=== PATIENT | male | born 1950 | race Caucasian/White ===

== ENCOUNTER 2016-12-28 16:46 | Emergency (ER) | payer MEDICARE, OTHER ==
[~2016-12-28] VITALS: Ht 182.9 cm; Wt 90.9 kg
[~2016-12-28 16:46] MED LIST: ATOR10TA84 PO; CLON2TAB4 PO; COLC0.6T69 PO; FURO40 PO; LISI-660 PO; METH10 PO; METO25 PO; METO50 PO; OMEP20 PO; OXYC30TA2 PO
[2016-12-28 17:36] LABS: GLUCOSE,POINT OF CARE 107 MG/DL (70-110)
[2016-12-28] MEDS ORDERED: AMLO-512 PO (17:44)
[2016-12-28] MEDS ORDERED: MORP10CA8 PO (17:44)
[2016-12-28] MEDS ORDERED: LACT30L PO (17:44)
[2016-12-28] MEDS ORDERED: CHOL200018 PO (17:44)
[2016-12-28] MEDS ORDERED: FINA5TAB41 PO (17:44)
[2016-12-28] MEDS ORDERED: DOCU250C91 PO (17:44)
[2016-12-28] MEDS ORDERED: ALLO100T PO (17:44)
[2016-12-28] MEDS ORDERED: NICO14T TD (17:44)
[2016-12-28] MEDS ORDERED: DESV50TA PO (17:44)
[2016-12-28] MEDS ORDERED: MULT-1203 PO (17:44)
[2016-12-28] MEDS ORDERED: FLUT15.88 IH (17:44)
[2016-12-28] MEDS ORDERED: TAMS0.4C32 PO (17:44)
[2016-12-28] MEDS ORDERED: BUSP10TA23 PO (17:44)
[2016-12-28] MEDS ORDERED: MORPHINE SULFATE 4 MG/ML SYRINGE IM ONE (19:00)
[2016-12-28 19:52] VITALS: BP 151/79
== END 2016-12-28 19:57 | disposition home or self-care (01) ==
LOC: EMS 16:48
DX: S70.02XA Contusion of left hip, initial encounter (principal); E11.9 Type 2 diabetes mellitus without complications; I10 Essential (primary) hypertension; W01.0XXA Fall on same level from slipping, tripping and stumbling without subsequent striking against object, initial encounter; Y93.89 Activity, other specified; Y92.89 Other specified places as the place of occurrence of the external cause; Y99.8 Other external cause status
CPT/HCPCS: 73521; 82962; 96372; 99284; J2270

== ENCOUNTER 2018-05-22 01:34 | Emergency (ER) | payer MEDICARE, OTHER ==
[~2018-05-22] VITALS: Ht 182.9 cm; Wt 96.4 kg
[~2018-05-22 01:34] MED LIST changes: +ALLO100T PO; +AMLO-512 PO; +BUSP10TA23 PO; +CHOL200018 PO; +CLON2TAB11 PO; -CLON2TAB4 PO; +COLC0.6T67 PO; -COLC0.6T69 PO; +DESV50TA PO; +DOCU250C91 PO; +FINA5TAB41 PO; +FLUT15.88 IH; -FURO40 PO; +LACT30L PO; -METO25 PO; -METO50 PO; +MORP10CA8 PO; +MULT-1203 PO; +NICO14T TD; -OXYC30TA2 PO; +TAMS0.4C32 PO
[2018-05-22] MEDS ORDERED: MORP15T PO (01:54)
[2018-05-22] MEDS ORDERED: CLON1 PO (01:54)
[2018-05-22 02:03] LABS: GLUCOSE,POINT OF CARE 110 MG/DL (70-110)
[2018-05-22 02:23] LABS: AMPHET/METH SCREEN,URINE NEGATIVE (NEGATIVE); BARBITURATE SCREEN, URINE NEGATIVE (NEGATIVE); BENZODIAZEPINES SCREEN,URINE NEGATIVE (NEGATIVE); CANNABINOID SCREEN,URINE NEGATIVE (NEGATIVE); COCAINE SCREEN,URINE NEGATIVE (NEGATIVE); METHADONE SCREEN, URINE POSITIVE (NEGATIVE); OPIATE SCREEN,URINE POSITIVE (NEGATIVE)
[2018-05-22 02:25] LABS: PHENCYCLIDINE SCREEN,URINE NEGATIVE (NEGATIVE)
[2018-05-22 02:56] VITALS: BP 99/53
== END 2018-05-22 04:02 | disposition home or self-care (01) ==
LOC: EMS 01:35
DX: F10.10 Alcohol abuse, uncomplicated (principal); M25.552 Pain in left hip; E11.9 Type 2 diabetes mellitus without complications; I10 Essential (primary) hypertension; G89.29 Other chronic pain; F11.90 Opioid use, unspecified, uncomplicated; Z88.0 Allergy status to penicillin; Y90.6 Blood alcohol level of 120-199 mg/100 ml
CPT/HCPCS: 36415; 80307; 82962; 99284; G0480

== ENCOUNTER 2019-06-24 11:34 | Emergency (ER) | payer MEDICARE, OTHER ==
[~2019-06-24] VITALS: Ht 185.4 cm; Wt 76.4 kg
[~2019-06-24 11:34] MED LIST changes: -AMLO-512 PO; +AMLO10TA7 PO; +CLON1 PO; -CLON2TAB11 PO; -COLC0.6T67 PO; +COLC0.6T76 PO; -MORP10CA8 PO; +MORP15T PO; -NICO14T TD
[2019-06-24 11:50] VITALS: BP 109/62
[2019-06-24 12:01] LABS: GLUCOSE,POINT OF CARE 122 MG/DL (70-110)
[2019-06-24] MEDS ORDERED: METO25 PO (12:02)
[2019-06-24] MEDS ORDERED: ICOS1CAP PO (12:02)
[2019-06-24] MEDS ORDERED: FURO20 PO (12:02)
[2019-06-24] MEDS ORDERED: GABA-531 PO (12:02)
[2019-06-24] MEDS ORDERED: OXYC10IR PO (12:03)
[2019-06-24] MEDS ORDERED: MORPHINE SULFATE 10 MG/ML SYRINGE IM ONE (12:30)
== END 2019-06-24 13:43 | disposition home or self-care (01) ==
LOC: EMS 11:36
DX: G89.29 Other chronic pain (principal); E11.9 Type 2 diabetes mellitus without complications; I10 Essential (primary) hypertension; I48.91 Unspecified atrial fibrillation; F31.9 Bipolar disorder, unspecified; F11.90 Opioid use, unspecified, uncomplicated; Z98.890 Other specified postprocedural states; Z79.899 Other long term (current) drug therapy; Z90.49 Acquired absence of other specified parts of digestive tract; Z96.659 Presence of unspecified artificial knee joint; Z96.649 Presence of unspecified artificial hip joint; Z88.0 Allergy status to penicillin
CPT/HCPCS: 82962; 96372; 99283; J2270

== ENCOUNTER 2019-08-15 08:25 | Emergency (ER) | payer MEDICARE, OTHER ==
[~2019-08-15] VITALS: Ht 182.9 cm; Wt 83.6 kg
[~2019-08-15 08:25] MED LIST changes: -CLON1 PO; +CLON1TAB13 PO; +FURO20 PO; +GABA-531 PO; +ICOS1CAP PO; -LACT30L PO; +METO25 PO; +OXYC10IR PO
[2019-08-15] MEDS ORDERED: ALPR0.5T8 PO (08:36)
[2019-08-15] MEDS ORDERED: CLON1TAB13 PO (08:36)
[2019-08-15] MEDS ORDERED: ICOS0.5C PO (08:36)
[2019-08-15] MEDS ORDERED: ZOLP10TA7 PO (08:36)
[2019-08-15] MEDS ORDERED: LISI-661 PO (08:36)
[2019-08-15] MEDS ORDERED: HYDR-4455 PO (08:36)
[2019-08-15 09:10] LABS: BASOPHILS % (AUTO) 0.2 % (0.0-2.0); EOSINOPHILS % (AUTO) 0.4 % (1.0-6.0); HEMATOCRIT 38.6 % (41-53); LYMPHOCYTES # (AUTO) 0.5 K/uL (1.0-4.8); LYMPHOCYTES % (AUTO) 8.2 % (22.0-44.0); MEAN CORPUSCULAR HGB CONC 33.6 G/dL (31.0-37.0); MEAN CORPUSCULAR VOLUME 93 fL (80-100); MONOCYTES # (AUTO) 0.4 K/uL (0.1-1.0); MONOCYTES % (AUTO) 6.4 % (2.0-9.0); NEUTROPHILS # (AUTO) 5.6 K/uL (1.8-7.7); NEUTROPHILS % (AUTO) 84.8 % (40.0-70.0); PLATELET COUNT (AUTO) 125 K/uL (150-450); RED BLOOD CELL COUNT(AUTO) 4.18 MIL/uL (4.50-5.90)
[2019-08-15 09:14] LABS: SALICYLATE 3.9 mg/dL (2.8-20.0)
[2019-08-15 09:15] LABS: ANION GAP 5 mmol/L (8-16); CALCIUM, TOTAL 8.9 mg/dL (8.8-10.5); CARBON DIOXIDE 28 mmol/L (22-29); CHLORIDE 99 mmol/L (98-107); CREATININE 1.69 mg/dL (0.60-1.30); GLOMERULAR FILTR. RATE CALC 40 mL/min (>60); GLUCOSE,RANDOM 210 mg/dL (70-110); POTASSIUM 5.3 mmol/L (3.5-5.1); SODIUM SERUM 132 mmol/L (136-145); UREA NITROGEN, BLOOD 22 mg/dL (7-18)
[2019-08-15 09:23] LABS: ALANINE AMINOTRANSFERASE 32 U/L (12-78); ALBUMIN 3.1 g/dL (3.4-5.0); ALKALINE PHOSPHATASE 146 U/L (46-116); ASPARTATE AMINOTRANSFERASE 31 U/L (15-37); BILIRUBIN,TOTAL 0.3 mg/dL (0.1-1.0); TOTAL PROTEIN, SERUM 6.7 g/dL (6.4-8.2)
[2019-08-15 09:24] LABS: ACETAMINOPHEN < 2 mcg/mL (10-30)
[2019-08-15 11:05] VITALS: BP 97/60
== END 2019-08-15 11:11 | disposition home or self-care (01) ==
LOC: EMS 08:25
DX: T40.2X1A Poisoning by other opioids, accidental (unintentional), initial encounter (principal); T42.4X1A Poisoning by benzodiazepines, accidental (unintentional), initial encounter; I48.91 Unspecified atrial fibrillation; E11.9 Type 2 diabetes mellitus without complications; I10 Essential (primary) hypertension; G89.29 Other chronic pain; F13.10 Sedative, hypnotic or anxiolytic abuse, uncomplicated; Z90.89 Acquired absence of other organs; Z79.899 Other long term (current) drug therapy; Z88.0 Allergy status to penicillin; Y92.89 Other specified places as the place of occurrence of the external cause
CPT/HCPCS: 36415; 80053; 82962; 85025; 99285; G0480; G0481

== ENCOUNTER 2019-08-28 13:35 | Emergency (ER) | payer MEDICARE, OTHER ==
[~2019-08-28] VITALS: Ht 182.9 cm; Wt 80.9 kg
[~2019-08-28 13:35] MED LIST changes: +ALPR0.5T8 PO; +COLC0.6T73 PO; -COLC0.6T76 PO; +HYDR-4455 PO; +ICOS0.5C PO; -LISI-660 PO; +LISI-661 PO; +TAMS-13 PO; -TAMS0.4C32 PO; +ZOLP10TA7 PO
[2019-08-28 15:26] VITALS: BP 105/61
== END 2019-08-28 15:55 | disposition home or self-care (01) ==
LOC: EMS 13:38
DX: I95.9 Hypotension, unspecified (principal); I48.91 Unspecified atrial fibrillation; E11.9 Type 2 diabetes mellitus without complications; G89.29 Other chronic pain; I10 Essential (primary) hypertension; F11.90 Opioid use, unspecified, uncomplicated; F31.9 Bipolar disorder, unspecified; Z90.49 Acquired absence of other specified parts of digestive tract; Z88.0 Allergy status to penicillin; Z79.899 Other long term (current) drug therapy; Z98.890 Other specified postprocedural states

== ENCOUNTER 2019-09-09 13:29 | Emergency (ER) | payer MEDICARE, OTHER ==
[~2019-09-09] VITALS: Ht 177.8 cm; Wt 84.0 kg
[~2019-09-09 13:29] MED LIST changes: -ATOR10TA84 PO; +DOCU-342 PO; -DOCU250C91 PO; -ICOS1CAP PO
[2019-09-09 14:59] LABS: BASOPHILS % (AUTO) 0.3 % (0.0-2.0); EOSINOPHILS % (AUTO) 1.3 % (1.0-6.0); HEMATOCRIT 37.5 % (41-53); HEMOGLOBIN 12.5 g/dL (13.5-17.5); LYMPHOCYTES # (AUTO) 1.2 K/uL (1.0-4.8); LYMPHOCYTES % (AUTO) 21.8 % (22.0-44.0); MEAN CORPUSCULAR HEMOGLOBIN 30.4 pg (26.0-34.0); MEAN CORPUSCULAR HGB CONC 33.4 G/dL (31.0-37.0); MEAN CORPUSCULAR VOLUME 91 fL (80-100); MONOCYTES # (AUTO) 0.4 K/uL (0.1-1.0); MONOCYTES % (AUTO) 7.3 % (2.0-9.0); NEUTROPHILS % (AUTO) 69.3 % (40.0-70.0); PLATELET COUNT (AUTO) 171 K/uL (150-450); RED BLOOD CELL COUNT(AUTO) 4.11 MIL/uL (4.50-5.90); RED CELL DISTRIBUTION WIDTH 14.3 % (11.5-14.5)
[2019-09-09] MEDS ORDERED: NALOXONE HCL 1 MG/ML 2 ML SYG IVP ONE (15:00)
[2019-09-09 15:01] LABS: GLUCOSE,POINT OF CARE 87 MG/DL (70-110)
[2019-09-09 15:15] LABS: ANION GAP 6 mmol/L (8-16); CALCIUM, TOTAL 9.3 mg/dL (8.8-10.5); CARBON DIOXIDE 30 mmol/L (22-29); CHLORIDE 99 mmol/L (98-107); CREATININE 1.34 mg/dL (0.60-1.30); GLOMERULAR FILTR. RATE CALC 53 mL/min (>60); GLUCOSE,RANDOM 84 mg/dL (70-110); POTASSIUM 4.8 mmol/L (3.5-5.1); SODIUM SERUM 135 mmol/L (136-145); UREA NITROGEN, BLOOD 21 mg/dL (7-18)
[2019-09-09 15:33] LABS: SALICYLATE 2.9 mg/dL (2.8-20.0)
[2019-09-09 15:40] LABS: ALANINE AMINOTRANSFERASE 14 U/L (12-78); ALBUMIN 3.3 g/dL (3.4-5.0); ALKALINE PHOSPHATASE 116 U/L (46-116); ASPARTATE AMINOTRANSFERASE 23 U/L (15-37); BILIRUBIN,TOTAL 0.6 mg/dL (0.1-1.0); CREATINE KINASE, TOTAL ONLY 360 U/L (39-308); TOTAL PROTEIN, SERUM 7.2 g/dL (6.4-8.2)
[2019-09-09 15:41] LABS: ACETAMINOPHEN < 2 mcg/mL (10-30)
[2019-09-09] MEDS ORDERED: MAGNESIUM SULFATE 2 GM/WATER 50 ML IV ONE (16:00)
[2019-09-09 18:28] LABS: APPEARANCE,URINE CLEAR (CLEAR); BILIRUBIN,URINE NEGATIVE (NEGATIVE); GLUCOSE, URINE (UA) NEGATIVE (NEGATIVE); KETONES,URINE NEGATIVE (NEGATIVE); LEUKOCYTE ESTERASE ,URINE NEGATIVE (NEGATIVE); NITRATE,URINE NEGATIVE (NEGATIVE); OCCULT BLOOD,URINE NEGATIVE (NEGATIVE); PH,URINE 5.5 (5.0-8.0); PROTEIN,URINE NEGATIVE (NEGATIVE); UROBILINOGEN,URINE 0.2 mg/dL (<=1.0)
[2019-09-09 18:33] LABS: AMPHET/METH SCREEN,URINE NEGATIVE (NEGATIVE); BARBITURATE SCREEN, URINE NEGATIVE (NEGATIVE); BENZODIAZEPINES SCREEN,URINE POSITIVE (NEGATIVE); CANNABINOID SCREEN,URINE NEGATIVE (NEGATIVE); COCAINE SCREEN,URINE NEGATIVE (NEGATIVE); METHADONE SCREEN, URINE POSITIVE (NEGATIVE); OPIATE SCREEN,URINE POSITIVE (NEGATIVE)
[2019-09-09 18:38] LABS: PHENCYCLIDINE SCREEN,URINE NEGATIVE (NEGATIVE)
[2019-09-09 19:43] VITALS: BP 112/79
== END 2019-09-09 20:05 | disposition home or self-care (01) ==
LOC: EMS 13:30
DX: E83.42 Hypomagnesemia (principal); F11.121 Opioid abuse with intoxication delirium; T40.2X5A Adverse effect of other opioids, initial encounter; I10 Essential (primary) hypertension; E11.9 Type 2 diabetes mellitus without complications; F31.9 Bipolar disorder, unspecified; I48.91 Unspecified atrial fibrillation; Z88.0 Allergy status to penicillin; Z79.899 Other long term (current) drug therapy; W18.39XA Other fall on same level, initial encounter; Y93.89 Activity, other specified; Y92.89 Other specified places as the place of occurrence of the external cause; Y99.8 Other external cause status
CPT/HCPCS: 36415; 70450; 72125; 80053; 80307; 81003; 82550; 82962; 83735; 85025; 96365; 96366; 99284; G0480; J3475; G0481

== ENCOUNTER 2020-04-13 15:02 | Emergency (ER) | payer MEDICARE, OTHER ==
[~2020-04-13] VITALS: Ht 185.4 cm; Wt 85.5 kg
[~2020-04-13 15:02] MED LIST changes: +FINA-27 PO; -FINA5TAB41 PO; +GABA-1181 PO; -GABA-531 PO; -OXYC10IR PO; +OXYC10TA92 PO; -ZOLP10TA7 PO; +ZOLP10TA8 PO
[2020-04-13 15:54] VITALS: BP 141/76
== END 2020-04-13 16:28 | disposition home or self-care (01) ==
LOC: EMS 15:04
DX: I10 Essential (primary) hypertension (principal); I48.91 Unspecified atrial fibrillation; F31.9 Bipolar disorder, unspecified; E11.9 Type 2 diabetes mellitus without complications; G89.29 Other chronic pain; Z90.89 Acquired absence of other organs; Z79.899 Other long term (current) drug therapy; Z88.0 Allergy status to penicillin

== ENCOUNTER 2021-10-01 21:42 | Inpatient (IN) | payer MEDICARE, OTHER ==
[~2021-10-01] VITALS: Ht 175.3 cm; Wt 87.6 kg
[~2021-10-01 21:42] MED LIST changes: -ALLO100T PO; +ALLO100T2 PO; +AMLO-258 PO; -AMLO10TA7 PO; +CLON-595 PO; -CLON1TAB13 PO; -DOCU-342 PO; +DOCU-350 PO; -LISI-661 PO; +LISI-893 PO
[2021-10-01] MEDS ORDERED: SODIUM CHLORIDE 0.9% 2,000 ML IV ONE (22:00)
[2021-10-01 22:10] LABS: ABG BASE EXCESS -16.4 mmol/L (-2.0-3.0); ABG CARBOXYHEMOGLOBIN 0.1 % (0.0-1.5); ABG HCO3 12.5 mmol/L (22.0-26.0); ABG METHEMOGLOBIN 0.2 % (0.0-1.5); ABG OXYGEN CONTENT 16.2 mL/dL (15.0-23.0); ABG OXYHEMOGLOBIN 93.7 % (94.0-100.0); ABG PCO2 42 mmHg (35-45); ABG TOTAL HEMOGLOBIN 12.2 G/dL (12.0-18.0); PO2, ARTERIAL BG 85.1 mmHg (75.0-83.0); SOURCE, BLOOD GAS ARTERIAL; TEMPERATURE, FAHRENHEIT, BG 98.6 FAHREN (96.0-98.6)
[2021-10-01 22:11] LABS: ABG PH 7.114 (7.35-7.450); O2 DEVICE,BLOOD GAS NON REBREATHER (ROOM AIR); SITE, BLOOD GAS RT RADIAL
[2021-10-01] MEDS ORDERED: ATOR20TA86 PO (22:11)
[2021-10-01] MEDS: OXYGEN THERAPY IH SCH (22:12)
[2021-10-01] MEDS ORDERED: BISA10SU11 PR (22:13)
[2021-10-01] MEDS ORDERED: BISA-151 PO (22:13)
[2021-10-01 22:24] LABS: COVID AG,FIA SOURCE NASOPHARYNGEAL
[2021-10-01 22:24] LABS: BASOPHILS % (AUTO) 0.2 % (0.0-2.0); EOSINOPHILS % (AUTO) 0 % (1.0-6.0); HEMATOCRIT 37.4 % (41-53); HEMOGLOBIN 12.3 g/dL (13.5-17.5); LYMPHOCYTES # (AUTO) 0.3 K/uL (1.0-4.8); LYMPHOCYTES % (AUTO) 3.4 % (22.0-44.0); MEAN CORPUSCULAR HEMOGLOBIN 31.5 pg (26.0-34.0); MEAN CORPUSCULAR HGB CONC 32.8 G/dL (31.0-37.0); MEAN CORPUSCULAR VOLUME 96 fL (80-100); MONOCYTES # (AUTO) 0.3 K/uL (0.1-1.0); MONOCYTES % (AUTO) 3.2 % (2.0-9.0); NEUTROPHILS # (AUTO) 8.6 K/uL (1.8-7.7); PLATELET COUNT (AUTO) 315 K/uL (150-450); RED CELL DISTRIBUTION WIDTH 15.3 % (11.5-14.5)
[2021-10-01 22:27] LABS: NEUTROPHILS % (AUTO) 93.2 % (40.0-70.0)
[2021-10-01] MEDS ORDERED: MethylPREDNISolone SOD SUCC 125 MG/2 ML VIAL IVP ONE (22:30)
[2021-10-01] MEDS ORDERED: LEVOFLOXACIN 750 MG/D5% WATER 150 ML IV ONE (22:30)
[2021-10-01] MEDS ORDERED: VANCOMYCIN HCL 1.5 GM in DEXTROSE 5%-WATER 250 ML IV ONE (22:30)
[2021-10-01] MEDS ORDERED: NOREPINEPHRINE 4 MG/D5%-WATER 250 ML IV STA (22:33)
[2021-10-01] MEDS ORDERED: NOREPINEPHRINE 4 MG/D5%-WATER 250 ML IV ONE (22:33)
[2021-10-01 22:36] LABS: ANION GAP 17 mmol/L (8-16); CARBON DIOXIDE 15 mmol/L (22-29); CHLORIDE 106 mmol/L (98-107); CREATININE 6.97 mg/dL (0.60-1.30); GLOMERULAR FILTR. RATE CALC 8 mL/min (>60); GLUCOSE,RANDOM 197 mg/dL (70-110); POTASSIUM 4.8 mmol/L (3.5-5.1); SODIUM SERUM 138 mmol/L (136-145)
[2021-10-01 22:41] LABS: UREA NITROGEN, BLOOD 159 mg/dL (7-18)
[2021-10-01 22:47] LABS: ALANINE AMINOTRANSFERASE 15 U/L (12-78); ALBUMIN 2.2 g/dL (3.4-5.0); ALKALINE PHOSPHATASE 114 U/L (46-116); ASPARTATE AMINOTRANSFERASE 10 U/L (15-37); BILIRUBIN,TOTAL 0.2 mg/dL (0.1-1.0); LIPASE 41 U/L (73-393); TOTAL PROTEIN, SERUM 7.4 g/dL (6.4-8.2)
[2021-10-01 22:51] LABS: LACTIC ACID 1.7 mmol/L (0.4-2.0)
[2021-10-01 22:59] LABS: B-TYPE NATRIURETIC PEPTIDE 185 pg/mL (0-100)
[2021-10-01] MEDS ORDERED: SODIUM CHLORIDE 0.9% 1,000 ML IV ONE (23:00)
[2021-10-01 23:22] LABS: APPEARANCE,URINE CLEAR (CLEAR); GLUCOSE, URINE (UA) NEGATIVE (NEGATIVE); KETONES,URINE NEGATIVE (NEGATIVE); LEUKOCYTE ESTERASE ,URINE MODERATE (NEGATIVE); NITRATE,URINE NEGATIVE (NEGATIVE); OCCULT BLOOD,URINE NEGATIVE (NEGATIVE); PROTEIN,URINE POS 1+ (NEGATIVE); UROBILINOGEN,URINE 0.2 mg/dL (<=1.0)
[2021-10-01 23:25] LABS: BILIRUBIN,URINE PRELIM. POSITIVE (NEGATIVE)
[2021-10-01 23:28] LABS: AMPHET/METH SCREEN,URINE NEGATIVE (NEGATIVE); BARBITURATE SCREEN, URINE NEGATIVE (NEGATIVE); BENZODIAZEPINES SCREEN,URINE POSITIVE (NEGATIVE); CANNABINOID SCREEN,URINE NEGATIVE (NEGATIVE); COCAINE SCREEN,URINE NEGATIVE (NEGATIVE); METHADONE SCREEN, URINE POSITIVE (NEGATIVE); OPIATE SCREEN,URINE POSITIVE (NEGATIVE)
[2021-10-01 23:29] LABS: PHENCYCLIDINE SCREEN,URINE NEGATIVE (NEGATIVE)
[2021-10-01 23:36] LABS: BACTERIA,URINE Moderate /HPF (None Seen); RBC,URINE 0-2 /HPF (0-2)
[2021-10-02] MEDS ORDERED: SODIUM CHLORIDE 0.9% 1,000 ML IV ONE (00:15)
[2021-10-02] MEDS ORDERED: MAGNESIUM HYDROXIDE SUSPENSION 30 ML UDCUP PO PRN (00:45)
[2021-10-02] MEDS ORDERED: BISACODYL 10 MG RECTAL RECTAL SUPPOSITORY PR PRN (00:45)
[2021-10-02] MEDS ORDERED: ONDANSETRON HCL 4 MG/2 ML VIAL IVP PRN (00:45)
[2021-10-02] MEDS ORDERED: *CLINICAL-LEVOFLOXACIN IVPB DOSING CLINICAL ONE (01:00)
[2021-10-02] MEDS: NOREPINEPHRINE 4 MG/D5%-WATER 250 ML IV PRN ×2 (01:11→05:00)
[2021-10-02] MEDS ORDERED: VANCOMYCIN HCL 1 GM/D5% WATER 200 ML IV PRN (01:15)
[2021-10-02] MEDS ORDERED: VASOPRESSIN 40 UNITS in DEXTROSE 5%-WATER 98 ML IV PRN (02:30)
[2021-10-02 07:00] LABS: GLUCOMETER DEV NAME(LOC) ERT.5; GLUCOSE,POINT OF CARE 230 MG/DL (70-110)
[2021-10-02] MEDS ORDERED: DEXTROSE 50%-WATER 25 GM/50 ML SYRINGE IVP PRN (07:15)
[2021-10-02] MEDS: OXYGEN THERAPY IH SCH ×2 (08:33→19:06)
[2021-10-02] MEDS: FINASTERIDE 5 MG TABLET PO SCH (08:34)
[2021-10-02] MEDS: TAMSULOSIN HCL 0.4 MG CAPSULE PO SCH ×2 (08:34→21:00)
[2021-10-02] MEDS: PANTOPRAZOLE SODIUM 40 MG DR TABLET PO SCH (08:35)
[2021-10-02] MEDS: HEPARIN SODIUM,PORCINE 5,000 UNITS/ML VIAL SQ SCH ×2 (08:47→21:32)
[2021-10-02] MEDS ORDERED: APIX5TAB PO (11:46)
[2021-10-02] MEDS ORDERED: LACT30L PO (11:46)
[2021-10-02] MEDS ORDERED: ALBU8HFA IH (11:46)
[2021-10-02] MEDS ORDERED: MORP30 PO (12:03)
[2021-10-02] MEDS ORDERED: INSU100V SQ (12:03)
[2021-10-02] MEDS ORDERED: BUDE10.2 IH (12:03)
[2021-10-02] MEDS ORDERED: FLUT16H NASAL (12:03)
[2021-10-02] MEDS ORDERED: CHOL-35 PO (12:04)
[2021-10-02] MEDS: MetroNIDAZOLE 500 MG/NACL 100 ML IV SCH ×2 (12:23→19:06)
[2021-10-02] MEDS: KETOROLAC TROMETHAMINE 30 MG/ML VIAL IVP PRN (12:53)
[2021-10-02 13:02] LABS: GLUCOMETER DEV NAME(LOC) ERT.5; GLUCOSE,POINT OF CARE 143 MG/DL (70-110)
[2021-10-02 14:17] LABS: CALCIUM, TOTAL 8.8 mg/dL (8.8-10.5); POTASSIUM 4.2 mmol/L (3.5-5.1)
[2021-10-02 14:37] LABS: ALBUMIN 1.9 g/dL (3.4-5.0); BILIRUBIN,TOTAL 0.2 mg/dL (0.1-1.0); C-REACTIVE PROTEIN QUANT 22.19 mg/dL (0.00-0.30); TOTAL PROTEIN, SERUM 6.8 g/dL (6.4-8.2)
[2021-10-02] MEDS: SODIUM BICARBONATE 75 MEQ in SODIUM CHLORIDE 0.45% 1,000 ML IV SCH (17:14)
[2021-10-02 18:22] LABS: GLUCOMETER DEV NAME(LOC) ERT.5; GLUCOSE,POINT OF CARE 120 MG/DL (70-110)
[2021-10-03] VITALS (12 sets, daily range): BP systolic 82–115; BP diastolic 47–73
[2021-10-03] MEDS: MORPHINE SULFATE 2 MG/ML SYRINGE IVP PRN ×2 (02:06→05:43)
[2021-10-03] MEDS: MetroNIDAZOLE 500 MG/NACL 100 ML IV SCH ×3 (03:40→21:05)
[2021-10-03] MEDS: KETOROLAC TROMETHAMINE 30 MG/ML VIAL IVP PRN (03:51)
[2021-10-03 04:31] LABS: GLUCOMETER DEV NAME(LOC) ERT.5; GLUCOSE,POINT OF CARE 114 MG/DL (70-110)
[2021-10-03 05:56] LABS: BASOPHILS % (AUTO) 0.2 % (0.0-2.0); EOSINOPHILS % (AUTO) 0 % (1.0-6.0); HEMATOCRIT 32.4 % (41-53); HEMOGLOBIN 10.7 g/dL (13.5-17.5); LYMPHOCYTES # (AUTO) 0.4 K/uL (1.0-4.8); LYMPHOCYTES % (AUTO) 6.1 % (22.0-44.0); MEAN CORPUSCULAR HGB CONC 33.1 G/dL (31.0-37.0); MEAN CORPUSCULAR VOLUME 94 fL (80-100); MONOCYTES # (AUTO) 0.3 K/uL (0.1-1.0); MONOCYTES % (AUTO) 5.1 % (2.0-9.0); NEUTROPHILS # (AUTO) 5.5 K/uL (1.8-7.7); PLATELET COUNT (AUTO) 200 K/uL (150-450); RED BLOOD CELL COUNT(AUTO) 3.47 MIL/uL (4.50-5.90); RED CELL DISTRIBUTION WIDTH 15.6 % (11.5-14.5)
[2021-10-03 06:13] LABS: NEUTROPHILS % (AUTO) 88.6 % (40.0-70.0)
[2021-10-03 06:16] LABS: HEMOGLOBIN A1C 5.7 % (3.8-5.6)
[2021-10-03] MEDS: SODIUM BICARBONATE 75 MEQ in SODIUM CHLORIDE 0.45% 1,000 ML IV SCH ×2 (06:35→20:55)
[2021-10-03 06:37] LABS: LACTIC ACID 1.2 mmol/L (0.4-2.0)
[2021-10-03 07:06] LABS: ALBUMIN 1.8 g/dL (3.4-5.0); BILIRUBIN,TOTAL 0.3 mg/dL (0.1-1.0); CALCIUM, TOTAL 8.8 mg/dL (8.8-10.5); CHOL/HDL RATIO 2.2 (4.2-7.3); CREATININE 3.09 mg/dL (0.60-1.30); FREE T4 (FREE THYROXINE) 1.13 ng/dL (0.76-1.46); MAGNESIUM 1.2 mg/dL (1.80-2.40); THYROID STIMULATING HORMONE 0.68 uIU/mL (0.36-3.74); TOTAL PROTEIN, SERUM 6.5 g/dL (6.4-8.2)
[2021-10-03 07:16] LABS: ABG BASE EXCESS -9.7 mmol/L (-2.0-3.0); ABG CARBOXYHEMOGLOBIN 0.3 % (0.0-1.5); ABG HCO3 17.2 mmol/L (22.0-26.0); ABG METHEMOGLOBIN 0.2 % (0.0-1.5); ABG OXYGEN CONTENT 16.3 mL/dL (15.0-23.0); ABG OXYGEN SATURATION 97.8 % (95.0-98.0); ABG OXYHEMOGLOBIN 97.3 % (94.0-100.0); ABG PCO2 41 mmHg (35-45); ABG PH 7.251 (7.35-7.450); ABG TOTAL HEMOGLOBIN 11.8 G/dL (12.0-18.0); O2 DEVICE,BLOOD GAS NON REBREATHER (ROOM AIR); PO2, ARTERIAL BG 112.9 mmHg (75.0-83.0); SITE, BLOOD GAS RT RADIAL; SOURCE, BLOOD GAS ARTERIAL; TEMPERATURE, FAHRENHEIT, BG 99.8 FAHREN (96.0-98.6)
[2021-10-03 07:21] LABS: URIC ACID 7.8 mg/dL (2.6-7.2)
[2021-10-03] MEDS: OXYGEN THERAPY IH SCH ×2 (08:00→20:55)
[2021-10-03] MEDS: TAMSULOSIN HCL 0.4 MG CAPSULE PO SCH ×2 (09:00→19:44)
[2021-10-03] MEDS: FINASTERIDE 5 MG TABLET PO SCH (09:00)
[2021-10-03] MEDS ORDERED: VANCOMYCIN HCL 750 MG in DEXTROSE 5%-WATER 250 ML IV ONE (09:00)
[2021-10-03] MEDS: PANTOPRAZOLE SODIUM 40 MG DR TABLET PO SCH (09:00)
[2021-10-03] MEDS ORDERED: VANCOMYCIN HCL 1 GM/D5% WATER 200 ML IV ONE (09:00)
[2021-10-03 09:08] LABS: BASOPHILS % (AUTO) 0.1 % (0.0-2.0); EOSINOPHILS % (AUTO) 0 % (1.0-6.0); HEMATOCRIT 32.6 % (41-53); HEMOGLOBIN 10.8 g/dL (13.5-17.5); LYMPHOCYTES # (AUTO) 0.4 K/uL (1.0-4.8); LYMPHOCYTES % (AUTO) 6.1 % (22.0-44.0); MEAN CORPUSCULAR HGB CONC 33.2 G/dL (31.0-37.0); MEAN CORPUSCULAR VOLUME 94 fL (80-100); MONOCYTES # (AUTO) 0.3 K/uL (0.1-1.0); MONOCYTES % (AUTO) 5.3 % (2.0-9.0); NEUTROPHILS # (AUTO) 5.7 K/uL (1.8-7.7); NEUTROPHILS % (AUTO) 88.5 % (40.0-70.0); PLATELET COUNT (AUTO) 199 K/uL (150-450); RED BLOOD CELL COUNT(AUTO) 3.49 MIL/uL (4.50-5.90); RED CELL DISTRIBUTION WIDTH 15.2 % (11.5-14.5)
[2021-10-03 09:18] LABS: CREATININE 2.9 mg/dL (0.60-1.30)
[2021-10-03] MEDS: HEPARIN SODIUM,PORCINE 5,000 UNITS/ML VIAL SQ SCH ×2 (09:39→21:05)
[2021-10-03 09:40] LABS: GLUCOSE,POINT OF CARE 100 MG/DL (70-110)
[2021-10-03 12:36] LABS: GLUCOSE,POINT OF CARE 110 MG/DL (70-110)
[2021-10-03] MEDS ORDERED: LORazepam 2 MG/ML VIAL IVP PRN (15:45)
[2021-10-03 16:25] LABS: GLUCOSE,POINT OF CARE 95 MG/DL (70-110)
[2021-10-03] MEDS ORDERED: AMIODARONE HCL 360 MG in DEXTROSE 5%-WATER 242.8 ML IV ONE (17:15)
[2021-10-03] MEDS ORDERED: SODIUM CHLORIDE 0.9% 0 ML ONE (20:09)
[2021-10-03] MEDS ORDERED: LEVOFLOXACIN 500 MG/D5% WATER 100 ML IV SCH (23:00)
[2021-10-03] MEDS: LEVOFLOXACIN 750 MG/D5% WATER 150 ML IV SCH (23:13)
[2021-10-03] MEDS ORDERED: AMIODARONE HCL 540 MG in DEXTROSE 5%-WATER 239.2 ML IV ONE (23:15)
[2021-10-04 00:12] VITALS: BP 93/64
[2021-10-04 00:23] LABS: GLUCOMETER DEV NAME(LOC) 5S.2B; GLUCOSE,POINT OF CARE 92 MG/DL (70-110)
[2021-10-04] MEDS: MetroNIDAZOLE 500 MG/NACL 100 ML IV SCH ×3 (03:17→19:54)
[2021-10-04 04:09] VITALS: BP 100/61
[2021-10-04 07:12] LABS: BASOPHILS % (AUTO) 0.1 % (0.0-2.0); EOSINOPHILS % (AUTO) 0 % (1.0-6.0); HEMATOCRIT 31.1 % (41-53); HEMOGLOBIN 10.3 g/dL (13.5-17.5); LYMPHOCYTES # (AUTO) 0.3 K/uL (1.0-4.8); LYMPHOCYTES % (AUTO) 3.7 % (22.0-44.0); MEAN CORPUSCULAR HEMOGLOBIN 31.2 pg (26.0-34.0); MEAN CORPUSCULAR HGB CONC 33.1 G/dL (31.0-37.0); MEAN CORPUSCULAR VOLUME 94 fL (80-100); MONOCYTES # (AUTO) 0.4 K/uL (0.1-1.0); MONOCYTES % (AUTO) 5.1 % (2.0-9.0); NEUTROPHILS # (AUTO) 6.6 K/uL (1.8-7.7); PLATELET COUNT (AUTO) 186 K/uL (150-450); RED CELL DISTRIBUTION WIDTH 15.1 % (11.5-14.5)
[2021-10-04 07:19] LABS: NEUTROPHILS % (AUTO) 91.1 % (40.0-70.0)
[2021-10-04 07:20] LABS: CALCIUM, TOTAL 8.7 mg/dL (8.8-10.5); CREATININE 2.45 mg/dL (0.60-1.30); MAGNESIUM 1.2 mg/dL (1.80-2.40); PHOSPHORUS 4.4 mg/dL (2.5-4.9); POTASSIUM 3.9 mmol/L (3.5-5.1)
[2021-10-04 07:33] LABS: C-REACTIVE PROTEIN QUANT 30.25 mg/dL (0.00-0.30)
[2021-10-04 08:04] VITALS: BP 119/63
[2021-10-04 08:06] LABS: HIV 1-2 SCREEN 4TH GEN W/RFLX Non Reactive (Non Reactive)
[2021-10-04] MEDS: MORPHINE SULFATE 2 MG/ML SYRINGE IVP PRN (08:33)
[2021-10-04] MEDS: OXYGEN THERAPY IH SCH ×2 (08:34→19:57)
[2021-10-04] MEDS: HEPARIN SODIUM,PORCINE 5,000 UNITS/ML VIAL SQ SCH ×2 (08:34→19:57)
[2021-10-04] MEDS: PANTOPRAZOLE SODIUM 40 MG/VIAL IVP SCH (08:35)
[2021-10-04] MEDS: TAMSULOSIN HCL 0.4 MG CAPSULE PO SCH ×2 (08:35→19:51)
[2021-10-04] MEDS: FINASTERIDE 5 MG TABLET PO SCH (08:35)
[2021-10-04] MEDS ORDERED: BUMETANIDE 0.25 MG/ML 4 ML VIAL IVP ONE (08:40)
[2021-10-04] MEDS ORDERED: VANCOMYCIN HCL 750 MG in DEXTROSE 5%-WATER 250 ML IV ONE (09:00)
[2021-10-04] MEDS: SODIUM BICARBONATE 75 MEQ in SODIUM CHLORIDE 0.45% 1,000 ML IV SCH (11:22)
[2021-10-04] MEDS ORDERED: MAGNESIUM SULFATE 2 GM/WATER 50 ML IV ONE (12:30)
[2021-10-04] MEDS: SODIUM BICARBONATE 75 MEQ in DEXTROSE 5%-WATER 1,000 ML IV SCH (12:30)
[2021-10-04 13:14] LABS: GLUCOMETER DEV NAME(LOC) 5N.3; GLUCOSE,POINT OF CARE 113 MG/DL (70-110)
[2021-10-04 13:14] LABS: GLUCOMETER DEV NAME(LOC) 5N.3; GLUCOSE,POINT OF CARE 148 MG/DL (70-110)
[2021-10-04 13:14] LABS: GLUCOMETER DEV NAME(LOC) 5N.3; GLUCOSE,POINT OF CARE 117 MG/DL (70-110)
[2021-10-04 16:00] VITALS: BP 141/77
[2021-10-04] MEDS: AMIODARONE HCL 750 MG in DEXTROSE 5%-WATER 485 ML IV SCH (17:34)
[2021-10-04 18:04] LABS: GLUCOMETER DEV NAME(LOC) 5N.3; GLUCOSE,POINT OF CARE 184 MG/DL (70-110)
[2021-10-04 19:30] VITALS: BP 129/68
[2021-10-04 23:49] VITALS: BP 120/64
[2021-10-05] MEDS: INSULIN LISPRO 100 UNITS/ML SQ PRN (00:11)
[2021-10-05] MEDS: MetroNIDAZOLE 500 MG/NACL 100 ML IV SCH ×3 (03:04→20:29)
[2021-10-05] MEDS: SODIUM BICARBONATE 75 MEQ in DEXTROSE 5%-WATER 1,000 ML IV SCH (03:04)
[2021-10-05 03:49] VITALS: BP 128/78
[2021-10-05 06:22] LABS: CALCIUM, TOTAL 8.7 mg/dL (8.8-10.5); CREATININE 2.01 mg/dL (0.60-1.30); MAGNESIUM 1.7 mg/dL (1.80-2.40); PHOSPHORUS 3.3 mg/dL (2.5-4.9); VANCOMYCIN,RANDOM 19.7 mcg/mL (25.0-50.0)
[2021-10-05 06:28] LABS: GLUCOMETER DEV NAME(LOC) 5N.3; GLUCOSE,POINT OF CARE 195 MG/DL (70-110)
[2021-10-05 06:28] LABS: GLUCOMETER DEV NAME(LOC) 5N.3; GLUCOSE,POINT OF CARE 180 MG/DL (70-110)
[2021-10-05 06:29] LABS: BASOPHILS % (AUTO) 0.1 % (0.0-2.0); EOSINOPHILS % (AUTO) 0 % (1.0-6.0); HEMATOCRIT 30.9 % (41-53); HEMOGLOBIN 10.4 g/dL (13.5-17.5); LYMPHOCYTES # (AUTO) 0.3 K/uL (1.0-4.8); LYMPHOCYTES % (AUTO) 3.4 % (22.0-44.0); MEAN CORPUSCULAR HEMOGLOBIN 31.3 pg (26.0-34.0); MEAN CORPUSCULAR HGB CONC 33.8 G/dL (31.0-37.0); MEAN CORPUSCULAR VOLUME 92 fL (80-100); MONOCYTES # (AUTO) 0.4 K/uL (0.1-1.0); MONOCYTES % (AUTO) 4.7 % (2.0-9.0); NEUTROPHILS # (AUTO) 8.3 K/uL (1.8-7.7); PLATELET COUNT (AUTO) 205 K/uL (150-450); RED BLOOD CELL COUNT(AUTO) 3.34 MIL/uL (4.50-5.90); RED CELL DISTRIBUTION WIDTH 15.1 % (11.5-14.5)
[2021-10-05 06:45] LABS: NEUTROPHILS % (AUTO) 91.8 % (40.0-70.0)
[2021-10-05 06:47] LABS: POTASSIUM 2.9 mmol/L (3.5-5.1)
[2021-10-05] MEDS ORDERED: POTASSIUM CHLORIDE 20 MEQ ER TABLET PO ONE (08:00)
[2021-10-05 08:07] VITALS: BP 130/74
[2021-10-05] MEDS: OXYGEN THERAPY IH SCH ×2 (08:18→20:29)
[2021-10-05] MEDS: PANTOPRAZOLE SODIUM 40 MG/VIAL IVP SCH (08:19)
[2021-10-05] MEDS: HEPARIN SODIUM,PORCINE 5,000 UNITS/ML VIAL SQ SCH ×2 (08:19→20:28)
[2021-10-05] MEDS: TAMSULOSIN HCL 0.4 MG CAPSULE PO SCH ×2 (09:00→20:29)
[2021-10-05] MEDS: FINASTERIDE 5 MG TABLET PO SCH (09:00)
[2021-10-05] MEDS: POTASSIUM CHL 10 MEQ/WATER 50 ML IV SCH ×3 (09:39→23:10)
[2021-10-05] MEDS ORDERED: VANCOMYCIN HCL 750 MG in DEXTROSE 5%-WATER 250 ML IV ONE (10:30)
[2021-10-05 11:49] VITALS: BP 117/84
[2021-10-05 12:18] LABS: GLUCOMETER DEV NAME(LOC) 5N.3; GLUCOSE,POINT OF CARE 187 MG/DL (70-110)
[2021-10-05 15:37] VITALS: BP 126/80
[2021-10-05] MEDS: AMIODARONE HCL 750 MG in DEXTROSE 5%-WATER 485 ML IV SCH (16:07)
[2021-10-05] MEDS: DEXTROSE 5%-WATER 1,000 ML IV SCH (17:50)
[2021-10-05 17:55] LABS: CALCIUM, TOTAL 8.7 mg/dL (8.8-10.5); CREATININE 1.84 mg/dL (0.60-1.30)
[2021-10-05 18:15] LABS: GLUCOMETER DEV NAME(LOC) 5N.3; GLUCOSE,POINT OF CARE 181 MG/DL (70-110)
[2021-10-05 18:40] LABS: POTASSIUM 2.7 mmol/L (3.5-5.1)
[2021-10-05] MEDS ORDERED: SODIUM CHLORIDE 0.9% 250 ML IV ONE (20:21)
[2021-10-05 20:29] VITALS: BP 142/83
[2021-10-06] VITALS (7 sets, daily range): BP systolic 137–158; BP diastolic 76–94
[2021-10-06] MEDS: LEVOFLOXACIN 750 MG/D5% WATER 150 ML IV SCH (00:12)
[2021-10-06] MEDS: MetroNIDAZOLE 500 MG/NACL 100 ML IV SCH ×3 (04:27→20:50)
[2021-10-06 06:48] LABS: CALCIUM, TOTAL 8.7 mg/dL (8.8-10.5); CREATININE 1.63 mg/dL (0.60-1.30); MAGNESIUM 1.4 mg/dL (1.80-2.40); PHOSPHORUS 2.6 mg/dL (2.5-4.9); VANCOMYCIN,RANDOM 21.2 mcg/mL (25.0-50.0)
[2021-10-06] MEDS: HEPARIN SODIUM,PORCINE 5,000 UNITS/ML VIAL SQ SCH ×2 (08:01→20:51)
[2021-10-06] MEDS: PANTOPRAZOLE SODIUM 40 MG/VIAL IVP SCH (08:01)
[2021-10-06] MEDS: OXYGEN THERAPY IH SCH ×2 (08:04→20:56)
[2021-10-06] MEDS: TAMSULOSIN HCL 0.4 MG CAPSULE PO SCH ×3 (08:12→20:50)
[2021-10-06] MEDS: FINASTERIDE 5 MG TABLET PO SCH ×2 (08:12→11:13)
[2021-10-06] MEDS: DEXTROSE 5%-WATER 1,000 ML IV SCH ×2 (08:21→22:08)
[2021-10-06] MEDS ORDERED: POTASSIUM CHLORIDE 20 MEQ ER TABLET PO ONE (08:30)
[2021-10-06] MEDS ORDERED: MAGNESIUM SULFATE 3 GM in DEXTROSE 5%-WATER 100 ML IV ONE (08:30)
[2021-10-06] MEDS: POTASSIUM CHL 10 MEQ/WATER 50 ML IV SCH ×6 (08:44→22:11)
[2021-10-06] MEDS: METOPROLOL SUCCINATE 25 MG ER TABLET PO SCH (11:09)
[2021-10-06] MEDS ORDERED: VANCOMYCIN HCL 750 MG in DEXTROSE 5%-WATER 250 ML IV ONE (12:00)
[2021-10-06] MEDS ORDERED: SODIUM CHLORIDE 0.9% 250 ML IV ONE (12:53)
[2021-10-06 15:44] LABS: GLUCOMETER DEV NAME(LOC) 5N.1C; GLUCOSE,POINT OF CARE 138 MG/DL (70-110)
[2021-10-06 15:44] LABS: GLUCOMETER DEV NAME(LOC) 5N.1C; GLUCOSE,POINT OF CARE 194 MG/DL (70-110)
[2021-10-06 15:44] LABS: GLUCOMETER DEV NAME(LOC) 5N.1C; GLUCOSE,POINT OF CARE 151 MG/DL (70-110)
[2021-10-06] MEDS: INSULIN LISPRO 100 UNITS/ML SQ PRN (17:46)
[2021-10-06 17:59] LABS: GLUCOMETER DEV NAME(LOC) 5N.1C; GLUCOSE,POINT OF CARE 189 MG/DL (70-110)
[2021-10-07] VITALS (7 sets, daily range): BP systolic 116–153; BP diastolic 69–88
[2021-10-07] MEDS: MetroNIDAZOLE 500 MG/NACL 100 ML IV SCH ×3 (04:31→21:17)
[2021-10-07 07:21] LABS: GLUCOMETER DEV NAME(LOC) 5N.1C; GLUCOSE,POINT OF CARE 152 MG/DL (70-110)
[2021-10-07 07:21] LABS: GLUCOMETER DEV NAME(LOC) 5N.1C; GLUCOSE,POINT OF CARE 161 MG/DL (70-110)
[2021-10-07] MEDS: OXYGEN THERAPY IH SCH (08:00)
[2021-10-07] MEDS ORDERED: VANCOMYCIN HCL 1.25 GM in DEXTROSE 5%-WATER 250 ML IV SCH (08:00)
[2021-10-07] MEDS ORDERED: AMIODARONE HCL 50 MG/ML 3 ML VIAL IVP SCH (08:30)
[2021-10-07 08:38] LABS: MAGNESIUM 1.4 mg/dL (1.80-2.40); POTASSIUM 3.2 mmol/L (3.5-5.1)
[2021-10-07] MEDS: TAMSULOSIN HCL 0.4 MG CAPSULE PO SCH ×2 (09:00→21:16)
[2021-10-07 09:44] LABS: CALCIUM, TOTAL 8.4 mg/dL (8.8-10.5); CREATININE 1.36 mg/dL (0.60-1.30)
[2021-10-07] MEDS: HEPARIN SODIUM,PORCINE 5,000 UNITS/ML VIAL SQ SCH (09:54)
[2021-10-07] MEDS: PANTOPRAZOLE SODIUM 40 MG/VIAL IVP SCH (09:54)
[2021-10-07] MEDS: AMIODARONE HCL 750 MG in DEXTROSE 5%-WATER 485 ML IV SCH (10:08)
[2021-10-07] MEDS: MORPHINE SULFATE 2 MG/ML SYRINGE IVP PRN (11:08)
[2021-10-07] MEDS ORDERED: SODIUM CHLORIDE 0.45% 1,000 ML IV SCH (12:30)
[2021-10-07] MEDS: POTASSIUM CHLORIDE 10 MEQ in SODIUM CHLORIDE 0.45% 1,000 ML IV SCH ×2 (12:35→15:11)
[2021-10-07] MEDS: POTASSIUM CHL 10 MEQ/WATER 50 ML IV SCH ×4 (12:44→16:55)
[2021-10-07] MEDS ORDERED: MAGNESIUM SULFATE 3 GM in DEXTROSE 5%-WATER 100 ML IV ONE (12:45)
[2021-10-07] MEDS: METOPROLOL SUCCINATE 25 MG ER TABLET PO SCH (14:02)
[2021-10-07] MEDS: FINASTERIDE 5 MG TABLET PO SCH (14:02)
[2021-10-07 14:29] LABS: GLUCOMETER DEV NAME(LOC) 5N.1C; GLUCOSE,POINT OF CARE 220 MG/DL (70-110)
[2021-10-07 16:07] LABS: S PNEUMO SOURCE Urine; STREP PNEUMONIAE AG URINE Negative (Negative)
[2021-10-07] MEDS: INSULIN LISPRO 100 UNITS/ML SQ PRN (17:18)
[2021-10-07] MEDS ORDERED: DEXTROSE 50%-WATER 25 GM/50 ML SYRINGE IVP PRN (18:00)
[2021-10-07] MEDS ORDERED: INSULIN LISPRO 100 UNITS/ML SQ PRN (18:00)
[2021-10-07 18:06] LABS: LEGIONELLA PNEUMO AG URINE Negative (Negative)
[2021-10-07 19:11] LABS: GLUCOMETER DEV NAME(LOC) 5N.1C; GLUCOSE,POINT OF CARE 226 MG/DL (70-110)
[2021-10-07] MEDS ORDERED: MORPHINE SULFATE 2 MG/ML SYRINGE IVP PRN (20:45)
[2021-10-07] MEDS ORDERED: METOPROLOL TARTRATE 25 MG TABLET PO SCH (21:00)
[2021-10-07] MEDS ORDERED: ATORVASTATIN CALCIUM 20 MG TABLET PO SCH (21:00)
[2021-10-07] MEDS: BUDESONIDE/FORMOTEROL FUMARATE 160-4.5 MCG/PUFF 10.2 GM INHALER IH SCH (21:16)
[2021-10-07] MEDS: BusPIRone HCL 5 MG TABLET PO SCH (21:16)
[2021-10-07] MEDS: APIXABAN 2.5 MG TABLET PO SCH (21:16)
[2021-10-08] MEDS: LEVOFLOXACIN 750 MG/D5% WATER 150 ML IV SCH
[2021-10-08 04:17] VITALS: BP 113/68
[2021-10-08] MEDS: MetroNIDAZOLE 500 MG/NACL 100 ML IV SCH ×2 (05:20→12:17)
[2021-10-08] MEDS: INSULIN LISPRO 100 UNITS/ML SQ PRN (06:09)
[2021-10-08 07:06] VITALS: BP 122/72
[2021-10-08] MEDS: BusPIRone HCL 5 MG TABLET PO SCH (08:22)
[2021-10-08] MEDS: METOPROLOL SUCCINATE 25 MG ER TABLET PO SCH (08:23)
[2021-10-08] MEDS: APIXABAN 2.5 MG TABLET PO SCH (08:23)
[2021-10-08] MEDS: FINASTERIDE 5 MG TABLET PO SCH (08:24)
[2021-10-08] MEDS: TAMSULOSIN HCL 0.4 MG CAPSULE PO SCH (08:24)
[2021-10-08] MEDS: OXYGEN THERAPY IH SCH (08:38)
[2021-10-08] MEDS: BUDESONIDE/FORMOTEROL FUMARATE 160-4.5 MCG/PUFF 10.2 GM INHALER IH SCH (08:39)
[2021-10-08] MEDS: AMIODARONE HCL 750 MG in DEXTROSE 5%-WATER 485 ML IV SCH (08:39)
[2021-10-08] MEDS: POTASSIUM CHLORIDE 10 MEQ in SODIUM CHLORIDE 0.45% 1,000 ML IV SCH (08:41)
[2021-10-08 08:55] LABS: CALCIUM, TOTAL 8.1 mg/dL (8.8-10.5); CREATININE 1.26 mg/dL (0.60-1.30); MAGNESIUM 1.8 mg/dL (1.80-2.40); POTASSIUM 3.5 mmol/L (3.5-5.1)
[2021-10-08] MEDS ORDERED: AmLODIPine BESYLATE 10 MG TABLET PO SCH (09:00)
[2021-10-08] MEDS ORDERED: METHADONE HCL 10 MG TABLET PO SCH (09:00)
[2021-10-08] MEDS ORDERED: FLUTICASONE PROPIONATE 50 MCG/SPRAY 16 GM NASAL SPRAY NASAL SCH (09:00)
[2021-10-08] MEDS ORDERED: PANTOPRAZOLE SODIUM 40 MG DR TABLET PO SCH (09:00)
[2021-10-08] MEDS ORDERED: CHOLECALCIFEROL (VIT D3) 1,000 UNITS [25 MCG] TABLET PO SCH (09:00)
[2021-10-08 11:07] LABS: HEPATITIS C AB (EIA) 6.8 s/co ratio (0.0-0.9); HEPATITIS C RT-PCR,QNT HCV Not Detected IU/mL
[2021-10-08 11:12] VITALS: BP 131/81
[2021-10-08 12:17] LABS: GLUCOMETER DEV NAME(LOC) 5N.1C; GLUCOSE,POINT OF CARE 125 MG/DL (70-110)
[2021-10-08 12:18] LABS: GLUCOMETER DEV NAME(LOC) 5N.1C; GLUCOSE,POINT OF CARE 148 MG/DL (70-110)
[2021-10-08] MEDS ORDERED: MetroNIDAZOLE 500 MG TABLET PO SCH ×2 (16:00→21:00)
[2021-10-08 20:00] LABS: GLUCOMETER DEV NAME(LOC) 5N.1C; GLUCOSE,POINT OF CARE 180 MG/DL (70-110)
[2021-10-08] MEDS ORDERED: LEVOFLOXACIN 750 MG/D5% WATER 150 ML IV SCH (23:00)
== END 2021-10-08 16:05 | DRG 871 ==
LOC: EMS 21:45 → ICUN 10-02 17:54 → 5N 10-03 15:33
PROVIDERS: ADMIT Internal Medicine Geriatric Medicine; ATTEND Internal Medicine Geriatric Medicine
PROC: 5A0935A Assistance with Respiratory Ventilation, Less than 24 Consecutive Hours, High Flow/Velocity Cannula (ICD-10-PCS; principal; 2021-10-02)
DX: A41.9 Sepsis, unspecified organism (principal); R65.21 Severe sepsis with septic shock; J96.01 Acute respiratory failure with hypoxia; E43 Unspecified severe protein-calorie malnutrition; J69.0 Pneumonitis due to inhalation of food and vomit; N17.9 Acute kidney failure, unspecified; J44.0 Chronic obstructive pulmonary disease with (acute) lower respiratory infection; F11.20 Opioid dependence, uncomplicated; N39.0 Urinary tract infection, site not specified; Z20.822 Contact with and (suspected) exposure to COVID-19; N18.9 Chronic kidney disease, unspecified; Z96.659 Presence of unspecified artificial knee joint; Z96.649 Presence of unspecified artificial hip joint; N40.0 Benign prostatic hyperplasia without lower urinary tract symptoms; M81.0 Age-related osteoporosis without current pathological fracture; M10.9 Gout, unspecified; I48.0 Paroxysmal atrial fibrillation; I49.3 Ventricular premature depolarization; F13.10 Sedative, hypnotic or anxiolytic abuse, uncomplicated; F10.10 Alcohol abuse, uncomplicated; F17.200 Nicotine dependence, unspecified, uncomplicated; E83.42 Hypomagnesemia; E78.5 Hyperlipidemia, unspecified; E11.22 Type 2 diabetes mellitus with diabetic chronic kidney disease; B19.20 Unspecified viral hepatitis C without hepatic coma; I12.9 Hypertensive chronic kidney disease with stage 1 through stage 4 chronic kidney disease, or unspecified chronic kidney disease; D72.810 Lymphocytopenia; D64.9 Anemia, unspecified; R13.10 Dysphagia, unspecified; B96.5 Pseudomonas (aeruginosa) (mallei) (pseudomallei) as the cause of diseases classified elsewhere; E87.6 Hypokalemia; E86.0 Dehydration; R26.9 Unspecified abnormalities of gait and mobility; Z98.1 Arthrodesis status; Z88.0 Allergy status to penicillin; F31.9 Bipolar disorder, unspecified; Z90.49 Acquired absence of other specified parts of digestive tract; G89.29 Other chronic pain; Z68.28 Body mass index [BMI] 28.0-28.9, adult
CPT/HCPCS: 36600; 71045; 71250; 74230; 76770; 80048; 80053; 80061; 80074; 80202; 81001; 82105; 82550; 82728; 82805; 82962; 83036; 83605; 83690; 83735; 83880; 84100; 84132; 84145; 84439; 84443; 84484; 84550; 85025; 85379; 86140; 86592; 87040; 87077; 87086; 87186; 87389; 87449; 87522; 87899; 92610; 92611; 93005; 93306; 93970; 99285; C9113; G0378; G0480; J0282; J1644; J1885; J1956; J2060; J2270; J2405; J2930; J3370; J3475; J3480; J3490; J7030; J7050; J7060; 36415-L1; 36415-TC; U0003